=== PATIENT | male | born 1935 | race Caucasian/White ===

== ENCOUNTER 2018-05-13 17:56 | Observation (INO) | payer MEDICARE, BC ==
[~2018-05-13] VITALS: Ht 175.3 cm; Wt 104.8 kg
--- NOTE | ~2018-05-13 | EKG ---
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
[2018-05-13 18:00] VITALS: BP 131/87
[2018-05-13] MEDS ORDERED: ALLOPURINOL 10100 M1 PO (18:05)
[2018-05-13] MEDS ORDERED: METFORMIN HCL500 MG PO (18:05)
[2018-05-13] MEDS ORDERED: SYNTHROID125 MC1 PO (18:13)
[2018-05-13] MEDS ORDERED: GLUCOPHAGE XR750 MG PO (18:14)
[2018-05-13] MEDS ORDERED: LOPRESSOR100 M1 PO (18:15)
[2018-05-13] MEDS ORDERED: KLOR-CON 1010 MEQ PO (18:15)
[2018-05-13] MEDS ORDERED: RAPAFLO8 MG PO (18:15)
[2018-05-13] MEDS ORDERED: FLONASE 0.05%50 MCG NASAL (18:16)
[2018-05-13] MEDS ORDERED: KEFLEX250 M1 PO (18:16)
[2018-05-13 18:26] LABS: HEMATOCRIT 37.9 % (42.0-52.0); HEMOGLOBIN 12.4 gm/dL (14.0-18.0); MCH 29.6 pg (26.0-34.0); MCHC 32.9 g/dL (28.0-37.0); MCV 90.2 fL (80.0-100.0); MPV 7.7 fl. (7.2-11.1); NUCLEATED RBCS 0 /100WBC; PLATELET COUNT* 123 thou/uL (150-400); RDW-CV 18.5 % (10.5-14.5); WBC 4.7 thou/uL (4.0-11.0)
[2018-05-13 18:37] LABS: INR 1.2; PROTIME 11.4 Seconds (9.20-11.50)
[2018-05-13 18:46] LABS: ANION GAP 7 mmol/L (7-16); BUN 16 mg/dL (7-18); CALCIUM 9.9 mg/dL (8.5-10.1); CHLORIDE 103 mmol/L (98-107); CO2 30 mmol/L (21-32); GLUCOSE 111 mg/dL (70-99); POTASSIUM 4.4 mmol/L (3.5-5.1); SODIUM 140 mmol/L (136-145)
[2018-05-13 18:57] LABS: ABSOLUTE BASOPHILS 0.1 thou/uL (0.0-0.2); ABSOLUTE EOSINOPHILS 0.1 thou/uL (0.0-0.7); ABSOLUTE LYMPHOCYTES 0.8 thou/uL (0.8-5.3); ABSOLUTE MONOCYTES 0.4 thou/uL (0.0-1.2); ABSOLUTE NEUTROPHILS 3.2 thou/uL (1.6-8.1); ANISOCYTOSIS 1+; ATYPICAL LYMPHS 1 %; MICROCYTES 1+; PLATELET ESTIMATE DECREASED
[2018-05-13 19:01] LABS: ALBUMIN 3.6 g/dL (3.4-5.0); ALKALINE PHOSPHATASE 86 U/L (46-116); CK-MB MASS 0.6 ng/mL (<0.5-3.6); LIPASE 172 U/L (73-393); MAGNESIUM 1.8 mg/dL (1.8-2.4); NT-PRO BRAIN NAT PEPTIDE 593 pg/mL (<300); SGOT 20 U/L (15-37); SGPT 19 U/L (30-65); TOTAL BILIRUBIN 0.5 mg/dL (<0.1-1.0); TROPONIN-I LEVEL <0.06 ng/mL (<0.06)
[2018-05-13 21:26] VITALS: BP 115/68
[2018-05-13 21:30] VITALS: BP 124/54
[2018-05-13] MEDS ORDERED: RESTORIL30 MG PO (22:46)
[2018-05-13 23:30] VITALS: BP 116/64
[2018-05-14 03:30] VITALS: BP 132/63
[2018-05-14 04:29] LABS: HEMATOCRIT 35.1 % (42.0-52.0); HEMOGLOBIN 11.4 gm/dL (14.0-18.0); MCH 29.5 pg (26.0-34.0); MCHC 32.6 g/dL (28.0-37.0); MCV 90.4 fL (80.0-100.0); MPV 7.9 fl. (7.2-11.1); NUCLEATED RBCS 0 /100WBC; PLATELET COUNT* 106 thou/uL (150-400); RBC 3.88 mil/uL (4.50-6.00); RDW-CV 18.5 % (10.5-14.5); WBC 4.5 thou/uL (4.0-11.0)
[2018-05-14 04:32] LABS: CALCIUM 8.8 mg/dL (8.5-10.1); CREATININE 0.9 mg/dL (0.6-1.3); POTASSIUM 4.2 mmol/L (3.5-5.1)
[2018-05-14 05:53] LABS: ABSOLUTE EOSINOPHILS 0.1 thou/uL (0.0-0.7); ABSOLUTE LYMPHOCYTES 1.4 thou/uL (0.8-5.3); ABSOLUTE MONOCYTES 0.3 thou/uL (0.0-1.2); ABSOLUTE NEUTROPHILS 2.7 thou/uL (1.6-8.1); PLATELET ESTIMATE DECREASED
[2018-05-14 05:54] LABS: ANISOCYTOSIS 1+; POIKILOCYTOSIS 1+
[2018-05-14 08:00] VITALS: BP 124/80
[2018-05-14 12:00] VITALS: BP 130/73
--- NOTE | 2018-05-14 15:00 | CON ---
[address] [address] CONSULTATION Name: VIANEY MORELOS Room: [address] IN .R.#: [id number] Admission: 05/13/18 Attend Phys: Jhony Montgomery MD Discharge: Date of : 33 Report #: [id number] THIS REPORT FOR: //name// CC: Jhony Montgomery FAM unknown Manjit Singh MD INDICATION: Chest pain and atrial fibrillation. HISTORY OF PRESENT ILLNESS: The patient is a very pleasant 82-year-old gentleman who is well known to myself. He has a history of chronic atrial fibrillation that is adequately rate controlled. He is not on anticoagulation due to some gastrointestinal and nasal bleeding in the past. He was admitted to the hospital with complaints of chest discomfort ongoing for the past 2 days that was left of the sternum. He describes this as somewhat worse with deep breath. He did have a cough that was for the most part nonproductive. He denied fever. He was not having any orthopnea or paroxysmal nocturnal dyspnea. He is without other complaint at this time. PAST MEDICAL HISTORY: 1. Stable abdominal aortic aneurysm. 2. Permanent atrial fibrillation. 3. Bilateral carotid disease, it is nonocclusive. 4. Hyperlipidemia. 5. Hypertension. PAST SURGICAL HISTORY: 1. Aortic valve replacement with a bioprosthetic valve. 2. Cataract extraction. 3. Colon surgery. FAMILY HISTORY: Noncontributory. SOCIAL HISTORY: The patient quit smoking remotely. He does not drink alcohol. ALLERGIES: AUGMENTIN, CEFDINIR, CIPROFLOXACIN, FLAGYL, FLOMAX, LEVAQUIN, PENICILLIN and LISINOPRIL. CURRENT MEDICATIONS: Allopurinol 300 mg daily, aspirin 81 mg daily, iron sulfate 325 mg daily, Synthroid 125 mcg daily, Toprol-XL 100 mg b.i.d., multivitamin 1 tablet daily, Restoril 22.5 mg at bedtime p.r.n. REVIEW OF SYSTEMS: A 14-point review of systems positive for chest discomfort. 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 He wears glasses without acute visual change. He has a history of easy [place] [address] CONSULTATION Name: VIANEY MORELOS Room: [address]#: [id number] Admission: 05/13/18 Attend Phys: Jhony Mnotgomery MD Discharge: Date of : 33 Report #: [id number] past. He has insomnia, otherwise 14-point review of systems unremarkable. PHYSICAL EXAMINATION: VITAL SIGNS: Stable. Blood pressure 132/63, pulse is in the 70s and irregular. GENERAL: This is a pleasant gentleman who is in no distress. Mood and affect appropriate. HEENT: The patient is wearing glasses. Extraocular muscles intact. Mucous membranes moist. NECK: Shows no jugular venous distention. There are no carotid bruits. CHEST: Reveals clear lung santiago. CARDIOVASCULAR: Reveals an irregular rhythm that is rate controlled. There is a grade 1-2/6 systolic ejection murmur heard best at the upper sternal borders. There is no gallop. ABDOMEN: Reveals normal bowel sounds. The abdomen is soft, nontender. EXTREMITIES: Shows some venous insufficiency changes, some mild edema, otherwise. SKIN: Warm and dry. LABORATORY DATA: EKG shows atrial fibrillation without acute ST or T-wave abnormalities. Cardiac enzymes are unremarkable. IMPRESSION AND RECOMMENDATIONS: 1. Atypical chest pain, prolonged in nature with negative enzymes. We will obtain stress testing. Further intervention will be pending the results of that study. 2. Abdominal aortic aneurysm has been stable by noninvasive studies. Continue outpatient followup. 3. Chronic atrial fibrillation, rate controlled presently on metoprolol. He is not anticoagulated due to bleeding problems. We will continue to monitor clinically. 4. Hyperlipidemia. The patient reports taking 5 mg atorvastatin weekly. 5. History of coronary artery disease by remote studies, presently stable. Stress test ordered and pending. <ELECTRONICALLY SIGNED> By: Manjit Huitron MD, FACC 05/14/18 1500 [id number] Huitron MD, FACC /nt
[2018-05-14 16:00] VITALS: BP 123/62
--- NOTE | 2018-05-14 16:47 | CARDNUC ---
[place] [address] CARDIAC NUCLEAR IMAGING REPORT Name: VIANEY MORELOS Room: [address] IN [facility]#: [id number] Admission: 05/13/18 Attend Phys: Jhony Montgomery, Discharge: Date of : 33 Date of Service: 05/14/18 1647 Report #: [id number] THIS REPORT FOR: //name// APPROVED REPORT Study performed: 05/14/2018 08:43:00 Indication: Chest pain, Atrial Fibrillation Patient Location: In-Patient Room #: 218 Stress Tech: Deidre Henry Stress Nurse: Natalie Parkinson RN Ht: 5 ft 9 in Wt: 231 lbs BSA: 2.20 m2 BMI: 34.10 Medical History Medical History: Diabetes, HTN Medications: metoprolol, hydralazine, asa, KCL Allergies: No known drug allergies Cardiac Risk Factors: Age, DM, HTN Previous Cardiac Procedures: - Exercise History: Sedentary Meds Held (24 hrs): - Resting Data Rest SPECT myocardial perfusion imaging was performed in supine position 30 minutes following the intravenous injection of 9.9 mCi of Tc-99m Sestamibi. Time of rest injection: 12:30 The images were gated to evaluate regional wall motion and calculate left ventricular ejection fraction. Administration Route: IV Administration Site: Left AC Pharmacologic Stress Pharmacologic stress test was performed by injecting Regadenoson 0.4 mg IV push over 10-15 seconds immediately followed by the intravenous injection of 35.2 mCi of Tc-99m Sestamibi. Time of stress injection: 13:50 Administration Route: IV Administration Site: Left AC Heart Rate at time of stress injection: 107 bpm. Gated Stress SPECT was performed 40 minutes [place] [address] CARDIAC NUCLEAR IMAGING REPORT Name: VIANEY MORELOS Room: [address]#: [id number] Admission: 05/13/18 Attend Phys: Jhony Montgomery, Discharge: Date of : 33 Date of Service: 05/14/18 1647 Report #: [id number] The images were gated to evaluate regional wall motion and calculate left ventricular ejection fraction. Prone imaging was performed. Stress Test Details Stress Test: Pharmacologic stress testing performed using 0.4 mg of regadenoson per 5 mL given IV over 10 seconds. Reason for pharmacologic stress test: physical limitation. HR Resting HR: 69 bpm Max Heart Rate (APMHR): 137 bpm Max HR Achieved: 107 bpm Target HR (85% APMHR): 116 bpm % of APMHR: 78 Recovery HR: 97 bpm BP Resting BP: 116/74 mmHg Max BP: 121/63 mmHg ECG Resting ECG: Atrial Fibrillation, LBBB Stress ECG: Atrial Fibrillation, LBBB ST Change: None Arrhythmia: None Recovery ECG: Atrial Fibrillation, LBBB Recovery ST Change: None Recovery Arrhythmia: None Clinical Reason for Termination: Completed protocol Stress Symptoms: None Exercise duration: - min sec Exercise capacity: 1.0 METs The patient had no significant symptoms with Lexiscan infusion. Stress ECG Conclusion The baseline 12-lead electrocardiogram shows atrial fibrillation with left bundle-branch block. EKGs obtained during and post Lexiscan infusion show atrial fibrillation with left bundle-branch block. No significant stress-induced arrhythmias noted. Study Quality Study: Good Artifact: [place] [address] CARDIAC NUCLEAR IMAGING REPORT Name: VIANEY MORELOS Room: [address] IN [facility]#: [id number] Admission: 05/13/18 Attend Phys: Jhony Montgomery, Discharge: Date of : 33 Date of Service: 05/14/18 1647 Report #: [id number] Study Data At rest, the left ventricular ejection fraction was 51%.. Post stress, the left ventricular ejection was 53%.. TID = 0.94. Perfusion There is mild photopenia of the inferior wall on stress and rest images consistent with diaphragmatic attenuation artifact. There is a focal fixed apical defect with prior infarct. Wall Motion There is akinesis of the apex. Nuclear Conclusion ECG Findings: non-diagnostic Clinical Findings: negative for ischemia Nuclear Findings: negative for ischemia Exercise Capacity: not assessed Left Ventricular Function: abnormal Risk Study: low Myocardial perfusion images show a focal fixed defect of the apex consistent with prior infarct. There were no reversible defects to suggest ischemia. Global LV systolic function is fairly well-preserved with focal apical wall motion and remotely. This is not a high risk study. <Conclusion> The baseline 12-lead electrocardiogram shows atrial fibrillation with left bundle-branch block. EKGs obtained during and post Lexiscan infusion show atrial fibrillation with left bundle-branch block. No significant stress-induced arrhythmias noted. <ELECTRONICALLY SIGNED> By: Manjit Huitron MD, FACC 05/14/18 1647 164 164 Manjit Huitron MD, FACC /INF
[2018-05-14 17:10] VITALS: BP 123/62
== END 2018-05-14 19:19 | disposition home or self-care (01) ==
LOC: M.ERS 17:56 → M.2W 18:56 → M.TBA-ER 18:56 → M.2W 21:18
PROVIDERS: Emergency Medicine Emergency Medical Services; ADMIT Internal Medicine
DX: R07.89 Other chest pain (principal); I48.0 Paroxysmal atrial fibrillation; I10 Essential (primary) hypertension; E78.5 Hyperlipidemia, unspecified; I65.23 Occlusion and stenosis of bilateral carotid arteries; I71.4 Abdominal aortic aneurysm, without rupture; I25.10 Atherosclerotic heart disease of native coronary artery without angina pectoris; Z87.891 Personal history of nicotine dependence; Z98.890 Other specified postprocedural states